=== PATIENT | female | born 1995 | race Caucasian/White ===

== ENCOUNTER → 2020-08-30 11:45 | Outpatient (BNVA) | payer OTHER, SELFPAY | PROVIDERS: PCP Family Medicine; Visit Provider Advanced Practice Midwife ==

== ENCOUNTER 2022-08-08 11:28 | Outpatient (REF) | payer OTHER, SELFPAY ==
[2022-08-09 04:36] LABS: CT PCR NOT DETECTED (Not Detect.); NG PCR NOT DETECTED (Not Detect.)
[2022-08-09 12:27] LABS: BV Int Neg Control Negative (Negative); BV Int Pos Control Positive (Positive)
== END 2022-08-08 11:29 | disposition home or self-care (01) ==
LOC: HO.LNP 11:28
PROVIDERS: Visit Provider Advanced Practice Midwife
DX: Z01.419 Encounter for gynecological examination (general) (routine) without abnormal findings (principal); Z11.3 Encounter for screening for infections with a predominantly sexual mode of transmission
CPT/HCPCS: 87480; 87491; 87510; 87591; 87660; 88142

== ENCOUNTER 2023-04-10 09:02 | Outpatient (REF) | payer OTHER, SELFPAY ==
[2023-04-10 18:10] LABS: CT PCR NOT DETECTED (Not Detect.); NG PCR NOT DETECTED (Not Detect.)
[2023-04-11 10:34] LABS: BV Int Neg Control Negative (Negative); BV Int Pos Control Positive (Positive)
== END 2023-04-10 09:03 | disposition home or self-care (01) ==
LOC: HO.LNP 09:02
PROVIDERS: Visit Provider Advanced Practice Midwife
DX: Z30.430 Encounter for insertion of intrauterine contraceptive device (principal); Z12.4 Encounter for screening for malignant neoplasm of cervix; Z20.2 Contact with and (suspected) exposure to infections with a predominantly sexual mode of transmission
CPT/HCPCS: 0353U; 58300; 81025; 87480; 87510; 87660; J7298

== ENCOUNTER 2023-04-10 09:02 | Outpatient (AMB) | payer OTHER, SELFPAY ==
--- NOTE | 2023-04-10 09:09 | A.OFFVIS_ITS ---
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 She had a Mirena in the past and she took it out because she wanted to be hormone free for a while she try control pills for a while but they been working out well for her. She wants a really reliable method of control she last had sex about a month ago her p eriods started yesterday and she is on day 2 and it sort of heavy she is in very good shape and takes very good care of herself. She has no concerns at all she remembers that her periods went away after while when she was on it before. [facility] Family History Maternal Grandmother Brain cancer Child No Financial Resp No problems noted. 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 Cervix is nulliparous posterior uterus is small anteverted mobile nontender adnexa nontender very good muscle tone. External Female Exam: normal external appearance Speculum Exam - Vagina: normal appearance of the vagina and normal vaginal discharge Speculum Exam - Cervix: normal appearance of the cervix Bimanual exam- vagina & uterus: normal bimanual exam, uterine size normal, consistency normal, uterine mobility normal, uterine shape normal and non-tender Bimanual Exam- Adnexa, other: normal adnexae, no masses and No adnexal tenderness Office Procedures IUD Insert/Removal Details Details: ---Patient is here for her IUD insertion. Bimanual exam was done. Her uterus is firm, nontender, and appropriate sized, and is small and anteverted with the cervix very posterior . Testing for STIs was done as it is been 6 months since her last visit. . The cervix was swabbed with Betadine. Tenaculum was placed on the cervix slowly to minimize cramping. The uterus was sounded slowly and gently she show a measurement of 6 3/4 cm. The IUD was removed from its package, after checking identifying information and lot dates and expiration dates and and gently inserted into the os, as per the IUD insertion procedure. The strings were then trimmed to 3-4 centimetres. The tenaculum was removed and gentle pressure applied with a swab, until any bleeding subsided from the tenaculum sites. The speculum was gently removed. The patient sat up. I Reviewed what to expect, and what indications would necessitate a call. Pt to call for fever, untoward pain or cramping. I reviewed any appropriate backup method. Pt to return for recheck as scheduled. 30014-NAS Insertion Procedure code (CPT) selection complete Office Meds Lanie Performing Provider: Belinda Villanueva CNM Administered by: URSULA Anaya on 04/10/23 09:38 Dose Route Admin Location Lot Number Expiration Date [facility] [place] Change Of Address Clerk 1 device intrauterine [facility] [place] [id number] 06/30/25 50255-936-24 [place] Results AMB Test Urine AMB Test Urine Negative Last Edit by URSULA Anaya on 04/10/23 09:17 Results Reviewed Results Reviewed: Laboratory Last Values [facility]st Clinic Negative 04/10/23 09:16 Assessment & Plan Assessment & Plan (1) Cervical cancer screening: Comment: 08/08/2022 Pap is negative. Code(s): Z12.4 - Encounter for screening for malignant neoplasm of cervix (2) Screen for sexually transmitted diseases: Code(s): Z11.3 - Encounter for screening for infections with a predominantly sexual mode of transmission (3) control counseling: Code(s): Z30.09 - Encounter for other general counseling and advice on contraception (4) Encounter for insertion of mirena IUD: Code(s): Z30.430 - Encounter for insertion of intrauterine contraceptive device Plan Reviewed how the Mirena works and its affect on menstrual cycles and menses and the other common changes that women sometimes notice on mood weight another subtle cyclic changes. Reviewed that 1 of the reasons we insert the Mirena at the beginning of the menses is because of the typical physiologic changes that happen with menses that allow for the cervix to be slightly softened and open a very tiny bit which allow for more easy insertion of the Mirena. Additionally when it is inserted at the beginning of the menstrual cycle the endometrial lining has not built up very much yet as it is just shedding its lining, and therefore future periods will be expected to be bag inspector and there will be less of a problematic side effect of irregular bleeding which might occur her if we inserted it at a random time. Discussed problems to watch for including any severe pain, fever, feeling of expulsion. Also discussed what to do if those occur.(call here or seek urgent care) Reviewed why we leave the strings about 3-4 centimetres long, so that they will curl around the cervix otherwise the sharper tip of the strings could be palpable and be uncomfortable. Additionally when they are cut too short it is not possible to remove the IUD in the future easily. Also discussed the initial recommendations to use the Mirena IUD for contraception for up to 5 years. Some recent studies are indicating that it can be used for longer and there are current recommendations saying it can be left for longer period of time when used for contraception, up to 8 years and it can be used for 5 years when it is being used to help control abnormal bleeding. However, many women, whose periods went away for the 1st few years of having the Mirena, have reported that around 4-1/2-5 years into its use, they have noticed return of full menses, and return of ovulatory signs and symptoms midcycle. This varies from women to woman. In addition women who have had it to help control bleeding, have had amenorrhea for very many years and sometimes have opted to leave it in longer if they are still not bleeding, when they are not concerned about contraception. I recommend the she pay attention to how the effects are acting on her own body, and cycles, and always take care to be aware of this. And if she is using it for contraception, and the consequences of conceiving would be great for her, she would be chi to pay attention to this, and not depend on it, if she has a return to fertility. And if she desires replacement, she should return for replacement at the appropriate time. Orders: Orders Bacterial Vaginosis Panel Today Z11.3 - Encounter for screening for infections with a predominantly sexual mode of transmission CT NG by PCR Today Z11.3 - Encounter for screening for infections with a predominantly sexual mode of transmission AMB IUD Insertion/Removal - Practice Supplied Today Z30.430 - Encounter for insertion of intrauterine contraceptive device AMB HCG Urine Test Today Z32.02 - Encounter for test, result negative Coding Level of Care Code Est Pt Level 3 (16906) Diagnoses Cervical cancer screening Z12.4 Screen for sexually transmitted diseases Z11.3 control counseling Z30.09 Encounter for insertion of mirena IUD Z30.430 CPT Codes Details - CPT: 90276-WXB Insertion ([id number])
[2023-04-10 09:12] VITALS: BP 120/74; BMI 21.8
== END 2023-04-10 09:45 | disposition home or self-care (01) ==
LOC: HO.HWS 09:02
PROVIDERS: Visit Provider Advanced Practice Midwife
DX: Z30.430 Encounter for insertion of intrauterine contraceptive device (principal); Z30.09 Encounter for other general counseling and advice on contraception; Z32.02 Encounter for pregnancy test, result negative
CPT/HCPCS: 58300; 99213

== ENCOUNTER 2023-08-07 10:29 | Outpatient (AMB) | payer OTHER, SELFPAY ==
--- NOTE | 2023-08-07 10:39 | MHC.OFFVIS ---
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 The month after and then just spotting after that and just spotting last month when she had the Mirena in the past this is the pattern she observed as well she feels it is helping her to gain weight, she feels is good she is happy with her how she feels right now. She also would like STI check today but she does not want blood work. She is not worried about anything in particular she just wants the swabs done she is not having any particular symptoms that she could relate today. She did get a gym membership recently but has not gone yet. PFSH Family History Maternal Grandmother Brain cancer Child No Financial Resp No problems noted. 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 Cervix long close thick firm her good tone with Kegel. Uterus is small firm anteverted mobile adnexa nontender. External Female Exam: normal external appearance Speculum Exam - Vagina: normal appearance of the vagina and normal vaginal discharge Speculum Exam - Cervix: normal appearance of the cervix Bimanual exam- vagina & uterus: normal bimanual exam, uterine size normal, consistency normal, uterine mobility normal, uterine shape normal and non-tender Bimanual Exam- Adnexa, other: normal adnexae, no masses and No adnexal tenderness Assessment & Plan Assessment & Plan (1) Screen for sexually transmitted diseases: Code(s): Z11.3 - Encounter for screening for infections with a predominantly sexual mode of transmission (2) IUD check up: Code(s): Z30.431 - Encounter for routine checking of intrauterine contraceptive device (3) Presence of 52 mg levonorgestrel-releasing intrauterine device (IUD): Comment: Inserted 04/22. Code(s): Z97.5 - Presence of (intrauterine) contraceptive device Plan Offered HIV testing along with other blood work if she desired testing and discussed indications. She declines it for now recommend considering finding a primary care provider. Discussed healthy self-care which she engages in. Discussed the other factors that can contribute to increased appetite and weight gain including change in stress levels and seasons. She is in the perfect weight range now with a BMI of 23.2. Discussed that usually weight gain is not seen with the Mirena. However she felt she was gaining excessive weight that would be something to look as as to why.. RTC for annual patient will try to find a PCC. Coding Level of Care Code Est Pt Level 3 (09526) Diagnoses Screen for sexually transmitted diseases Z11.3 IUD check up Z30.431 Presence of 52 mg levonorgestrel-releasing intrauterine device (IUD) Z97.5
[2023-08-07 10:40] VITALS: BP 106/72; BMI 23.2
== END 2023-08-07 12:39 | disposition home or self-care (01) ==
LOC: HO.HWS 10:29
PROVIDERS: Visit Provider Advanced Practice Midwife
DX: Z30.431 Encounter for routine checking of intrauterine contraceptive device (principal)
CPT/HCPCS: 99213

== ENCOUNTER 2023-08-07 10:29 | Outpatient (REF) | payer OTHER, SELFPAY ==
[2023-08-07 17:02] LABS: CT PCR NOT DETECTED (Not Detect.); NG PCR NOT DETECTED (Not Detect.)
[2023-08-08 11:57] LABS: BV Int Neg Control Negative (Negative); BV Int Pos Control Positive (Positive)
== END 2023-08-07 10:30 | disposition home or self-care (01) ==
LOC: HO.LNP 10:29
PROVIDERS: Visit Provider Advanced Practice Midwife
DX: Z97.5 Presence of (intrauterine) contraceptive device (principal); Z20.2 Contact with and (suspected) exposure to infections with a predominantly sexual mode of transmission
CPT/HCPCS: 0353U; 87480; 87510; 87660

== ENCOUNTER 2023-11-27 13:27 | Outpatient (REF) | payer OTHER, SELFPAY ==
[2023-11-28 09:25] LABS: CT PCR NOT DETECTED (Not Detect.); NG PCR NOT DETECTED (Not Detect.)
[2023-11-28 11:15] LABS: BV Int Neg Control Negative (Negative); BV Int Pos Control Positive (Positive)
== END 2023-11-27 13:28 | disposition home or self-care (01) ==
LOC: HO.LNP 13:27
PROVIDERS: Visit Provider Advanced Practice Midwife
DX: Z30.09 Encounter for other general counseling and advice on contraception (principal); Z20.2 Contact with and (suspected) exposure to infections with a predominantly sexual mode of transmission; N76.0 Acute vaginitis; B96.89 Other specified bacterial agents as the cause of diseases classified elsewhere
CPT/HCPCS: 0353U; 87480; 87510; 87660

== ENCOUNTER 2023-11-27 13:27 | Outpatient (AMB) | payer OTHER, SELFPAY ==
[2023-11-27 13:30] VITALS: BP 110/66; BMI 24.0
--- NOTE | 2023-11-27 13:30 | A.OFFVIS_ITS ---
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 The IUD is working out fine and she has not having any problems with that at all and she can feel the strings. She just gets a little bit of brown staining about once a month although this month was a little bit late it corresponds with breast symptoms that tell her it is sort of like a light period. She took the metronidazole tablets for the positive testing for Gardnerella after the last visit and she says her discharge improved very much and she would like a p.r.n. prescription for it we discussed signs and symptoms of bacterial vaginosis at length and the fact that just because Gardnerella is present does not mean BV is present. But I will send a prescription for her. She feels she is doing well with healthy happy eating and not overweight she is not really exercising much but knows she needs to add more. In talking about testing for HIV hep B hep C and syphilis she thought about it for a little while and she decided she will not get those now. discussed that if any other testing was ever positive for an STD- I would recommend testing for sure then. PFSH Family History Maternal Grandmother Brain cancer Child No Financial Resp No problems noted. 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 Sexual orientation: Straight/Heterosexual Gender identity: Female Female Reproductive History Menstrual Age of Menarche: 13 control method: progestin IUCD Total pregnancies: 1 Full term: 1 Number of Living Children: 1 Date of last pap smear: 08/08/22 (negative) History of abnormal pap smear: No Physical Exam Vital Signs: Last Vital Signs BP 110/66 11/27/23 13:30 BMI result Body Mass Index 24.0 Results Reviewed Results Reviewed: Name: Consuelo Peacock Age/Sex: 27/F Attending: Belinda Villanueva CNM : 1995 Submitted by: Belinda Villanueva CNM Copies to: MR #: [id number] Status: DEP REF Collected: 08/08/22 Location: [facility] Received: 08/08/22 Interpretation General Category: Negative for intraepithelial lesion/malignancy. Adequacy: Endocervical component present. Interpretation: Reactive cellular changes. Clinical Information LMP: 07/17/2022 Previous PAP test: 2019, Unknown Material Received ThinPrep-Cervical Electronically Signed By: Carrie Yoo 08/27/221916 The Pap Test is a screening procedure with the inherent possibility of both false negative and false positive results. Results should be interpreted in the context of historic and current clinical findings. Reliability of the Pap Test is enhanced by performing the test on a regular repetitive basis. Patient: Consuelo Peacock Age/Sex: 27/F MR#: [id number] Page 1 of 1 Assessment & Plan Assessment & Plan (1) Presence of 52 mg levonorgestrel-releasing intrauterine device (IUD): Comment: Inserted 04/22. Code(s): Z97.5 - Presence of (intrauterine) contraceptive device (2) Screen for sexually transmitted diseases: Code(s): Z11.3 - Encounter for screening for infections with a predominantly sexual mode of transmission (3) Cervical cancer screening: Comment: 08/08/2022 Pap is negative., next Pap around July 2025. Code(s): Z12.4 - Encounter for screening for malignant neoplasm of cervix (4) Well woman exam with routine gynecological exam: Code(s): Z01.419 - Encounter for gynecological examination (general) (routine) without abnormal findings (5) control counseling: Code(s): Z30.09 - Encounter for other general counseling and advice on contraception (6) Bacterial vaginosis: Comment: Not currently just has brown spotting consistent with light menstrual staining with Mirena. Would like a prescription for Flagyl for p.r.n. use full teaching done will only use when absolutely necessary. Code(s): N76.0 - Acute vaginitis; B96.89 - Other specified bacterial agents as the cause of diseases classified elsewhere (7) Family history of breast cancer in first degree relative: Comment: Her 1st cousin on her mother's side had breast cancer at age 27 and has . The index patient herself was BRCA positive, and her mother, not related to this patient, is also BRCA positive. This patient's mother tested BRCA negative. 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 The IUD is working out fine and she has not having any problems with that at all and she can feel the strings. She just gets a little bit of brown staining about once a month although this month was a little bit late it corresponds with breast symptoms that tell her it is sort of like a light period. She took the metronidazole tablets for the positive testing for Gardnerella after the last visit and she says her discharge improved very much and she would like a p.r.n. prescription for it we discussed signs and symptoms of bacterial vaginosis at length and the fact that just because Gardnerella is present does not mean BV is present. But I will send a prescription for her. She feels she is doing well with healthy happy eating and not overweight she is not really exercising much but knows she needs to add more. In talking about testing for HIV hep B hep C and syphilis she thought about it for a little while and she decided she will not get those now. discussed that if any other testing was ever positive for an STD- I would recommend testing for sure then. the patient shared at the end that she does have a family history of breast cancer. We explored this it is her 1st cousin on her mother's side. The index patient tested BRCA positive and she was diagnosed at age 26 and has since . The patient's mother who is not related to this patient also tested BRCA positive this patient is own mother is BRCA negative. Therefore discussed that because her mother got tested she would not be herself at higher risk to have the BRCA gene. Screening for her would probably start at the normal age of age 39 but she should pay attention as they are discovering new genes and thinks to test for all the time. She does not have a primary care provider suggested asking around with work colleagues to see who has someone that they feel they can speak to as we get older we need to start paying attention to more health concerns. Because she eats well takes care of herself is going to try to be more physically active then she is doing primary care to help take her care of herself also discussed safer sex. It is often in the face of obesity and other health concerns and habits such as smoking where there are other health risks that need to be screened for earlier. Orders: Orders Bacterial Vaginosis Panel Today Z11.3 - Encounter for screening for infections with a predominantly sexual mode of transmission CT NG by PCR Today Z11.3 - Encounter for screening for infections with a predominantly sexual mode of transmission Medications: New metronidazole For use only when there are very clear signs and symptoms of a recurrent dionne terial vaginosis. 500 mg PO Q12H 14 tabs 1RF Coding Level of Care Code Est Pt Prev Care 18-39y(75053) Diagnoses Presence of 52 mg levonorgestrel-releasing intrauterine device (IUD) Z97.5 Screen for sexually transmitted diseases Z11.3 Cervical cancer screening Z12.4 Well woman exam with routine gynecological exam Z01.419 control counseling Z30.09 Bacterial vaginosis N76.0; B96.89 Family history of breast cancer in first degree relative Z80.3
== END 2023-11-27 14:15 | disposition home or self-care (01) ==
PROVIDERS: Visit Provider Advanced Practice Midwife
DX: Z01.419 Encounter for gynecological examination (general) (routine) without abnormal findings (principal); N76.0 Acute vaginitis; B96.89 Other specified bacterial agents as the cause of diseases classified elsewhere; Z97.5 Presence of (intrauterine) contraceptive device
CPT/HCPCS: 99395